=== PATIENT | male | born 1945 | race African-American/Black ===

== ENCOUNTER 2017-01-08 08:27 | Emergency (ER) | payer OTHER, MEDICAID ==
[~2017-01-08] VITALS: Ht 188 cm; Wt 82.0 kg
[~2017-01-08 08:27] MED LIST: HYDR-523 PO; LISI-604 PO; OXYB5TAB11 PO; oysco
[2017-01-08 09:30] VITALS: BP 120/68
[2017-01-08] MEDS ORDERED: DIPHENHYDRAMINE 25MG CAPSULE PO ONE (09:45)
== END 2017-01-08 10:39 | disposition home or self-care (01) ==
LOC: ER 08:48
DX: T78.1XXA Other adverse food reactions, not elsewhere classified, initial encounter (principal); I10 Essential (primary) hypertension; E78.00 Pure hypercholesterolemia, unspecified; Y92.89 Other specified places as the place of occurrence of the external cause
CPT/HCPCS: 99282; Q0163